=== PATIENT | female | born 1955 | race Caucasian/White ===

== ENCOUNTER → 2017-01-23 | Outpatient (CLI) | payer OTHER | END | disposition home or self-care (01) | LOC: SURG 12:52 | PROVIDERS: ATTEND Anesthesiology | DX: M47.22 Other spondylosis with radiculopathy, cervical region (principal); M41.86 Other forms of scoliosis, lumbar region; M25.512 Pain in left shoulder; M79.1 Myalgia; F11.20 Opioid dependence, uncomplicated; F17.200 Nicotine dependence, unspecified, uncomplicated; Z79.899 Other long term (current) drug therapy | CPT/HCPCS: 99204 ==

== ENCOUNTER → 2017-10-26 | Outpatient (CLI) | payer OTHER ==
[~2017-10-26] MED LIST: BUPIVACAINE MPF 0.25% 10 ML VIAL. ONE; LIDOCAINE 1% PF 30 ML VIAL. ONE
== END ==
LOC: SURG 09:20
PROVIDERS: ATTEND Anesthesiology Pain Medicine
DX: M47.812 Spondylosis without myelopathy or radiculopathy, cervical region (principal); F19.20 Other psychoactive substance dependence, uncomplicated; F17.200 Nicotine dependence, unspecified, uncomplicated; Z72.0 Tobacco use
CPT/HCPCS: 64490; 64491; 64492; J2001; J3490

== ENCOUNTER → 2017-11-29 | Outpatient (CLI) | payer OTHER | END | disposition home or self-care (01) | LOC: SURG 09:19 | PROVIDERS: ATTEND Anesthesiology Pain Medicine | DX: M47.812 Spondylosis without myelopathy or radiculopathy, cervical region (principal); F17.200 Nicotine dependence, unspecified, uncomplicated | CPT/HCPCS: 99214 ==

== ENCOUNTER → 2017-12-20 | Outpatient (CLI) | payer OTHER | END | disposition home or self-care (01) | LOC: SURG 09:03 | PROVIDERS: ATTEND Anesthesiology Pain Medicine | DX: M25.512 Pain in left shoulder (principal); M54.2 Cervicalgia; Z86.73 Personal history of transient ischemic attack (TIA), and cerebral infarction without residual deficits; Z87.891 Personal history of nicotine dependence | CPT/HCPCS: 99214 ==

== ENCOUNTER → 2018-01-31 | Day surgery (SDC) | payer OTHER ==
[~2018-01-31] MED LIST changes: -BUPIVACAINE MPF 0.25% 10 ML VIAL. ONE; +BUPIVACAINE MPF 0.25% 30 ML VIAL. ONE; +CYCL-331 PO; +DEXAMETHASONE SOD PHOS 4 MG/ML VIAL ONE; +HYDR-2758 PO; +MIDAZOLAM HCL PF 2 MG/2 ML VIAL. ONE; +MORP15TA3 PO
[2018-01-31 10:55] VITALS: BP 154/89
== END | disposition home or self-care (01) ==
LOC: SURG 08:41
PROVIDERS: ATTEND Anesthesiology Pain Medicine
DX: M47.814 Spondylosis without myelopathy or radiculopathy, thoracic region (principal); F17.210 Nicotine dependence, cigarettes, uncomplicated; Z90.710 Acquired absence of both cervix and uterus; Z98.51 Tubal ligation status; Z98.890 Other specified postprocedural states; M19.90 Unspecified osteoarthritis, unspecified site; Z79.899 Other long term (current) drug therapy; Z86.73 Personal history of transient ischemic attack (TIA), and cerebral infarction without residual deficits
CPT/HCPCS: 64633; 64634; 99152; 99153; J1100; J2001; J2250; J3010; J3490

== ENCOUNTER → 2018-03-21 | Outpatient (CLI) | payer OTHER ==
[2018-01-31 10:55] VITALS: BP 154/89
[~2018-03-21] MED LIST changes: -BUPIVACAINE MPF 0.25% 30 ML VIAL. ONE; -DEXAMETHASONE SOD PHOS 4 MG/ML VIAL ONE; +HYDR-2155 PO; -HYDR-2758 PO; -LIDOCAINE 1% PF 30 ML VIAL. ONE; -MIDAZOLAM HCL PF 2 MG/2 ML VIAL. ONE
== END | disposition home or self-care (01) ==
LOC: SURG 10:01
PROVIDERS: ATTEND Anesthesiology Pain Medicine
DX: M47.814 Spondylosis without myelopathy or radiculopathy, thoracic region (principal); M62.838 Other muscle spasm; G89.4 Chronic pain syndrome; F11.90 Opioid use, unspecified, uncomplicated; F17.200 Nicotine dependence, unspecified, uncomplicated; M19.90 Unspecified osteoarthritis, unspecified site; Z90.710 Acquired absence of both cervix and uterus; Z79.899 Other long term (current) drug therapy
CPT/HCPCS: 99214

== ENCOUNTER → 2018-08-20 | Outpatient (CLI) | payer OTHER ==
[2018-01-31 10:55] VITALS: BP 154/89
== END | disposition home or self-care (01) ==
LOC: SURG 09:26
PROVIDERS: ATTEND Anesthesiology
DX: M47.812 Spondylosis without myelopathy or radiculopathy, cervical region (principal); M79.10 Myalgia, unspecified site; F17.200 Nicotine dependence, unspecified, uncomplicated
CPT/HCPCS: 99214

== ENCOUNTER → 2018-09-13 | Outpatient (CLI) | payer OTHER ==
[2018-01-31 10:55] VITALS: BP 154/89
== END | disposition home or self-care (01) ==
LOC: SURG 12:11
PROVIDERS: ATTEND Anesthesiology Pain Medicine
DX: Z02.9 Encounter for administrative examinations, unspecified (principal); M47.814 Spondylosis without myelopathy or radiculopathy, thoracic region; M79.10 Myalgia, unspecified site; G89.4 Chronic pain syndrome; M19.90 Unspecified osteoarthritis, unspecified site; Z90.710 Acquired absence of both cervix and uterus; Z79.899 Other long term (current) drug therapy; Z79.891 Long term (current) use of opiate analgesic
CPT/HCPCS: 99214

== ENCOUNTER → 2020-07-13 | Outpatient (CLI) | payer BC ==
[2018-01-31 10:55] VITALS: BP 154/89
[~2020-07-13] MED LIST changes: +MORP-15 PO; -MORP15TA3 PO
--- NOTE | 2020-07-15 09:56 | RAD ---
PROCEDURE: MG 2D BILAT SCREENING HISTORY: The patient is 65 years old and is seen for Reason: SCREENING / Spl. Instructions: / Histor y: . COMPARISON: April 11, 2013 TECHNIQUE: CC and MLO views of both breasts were obtained. Images were processed by the [employer] computer-aided detection system. DENSITY: The breast parenchyma is heterogeneously dense. This may lower the sensitivity of mammograph y. FINDINGS: Focal asymmetry within the left breast retroareolar region 1.3 cm from the nipple. No barrett spicious macrocalcification. Bilateral breast implants with irregular appearance. IMPRESSION: Left retroareolar breast focal asymmetry. Recommend spot compression views and ML view. Ultrasound ma y also be indicated. BI-RADS category 0 Incomplete: Needs additional imaging evaluation Patient entered into a reminder system for annual screening mammogram. Electronically signed by: Sawyer Jolly DO (07/15/2020 9:54 AM) [id number]
== END ==
LOC: MAMMO 08:48
PROVIDERS: ATTEND Nurse Practitioner Family
DX: Z12.31 Encounter for screening mammogram for malignant neoplasm of breast (principal)
CPT/HCPCS: 77067

== ENCOUNTER → 2020-08-04 | Day surgery (SDC) | payer BC ==
[~2020-08-04] MED LIST changes: +BUPIVACAINE MPF 0.25% 30 ML VIAL. ONE; +LIDOCAINE 1% PF 30 ML VIAL. ONE
[2020-08-04 13:08] VITALS: BP 131/69
== END | disposition home or self-care (01) ==
LOC: SURG 13:01
PROVIDERS: ATTEND Anesthesiology
DX: M12.88 Other specific arthropathies, not elsewhere classified, other specified site (principal); M47.814 Spondylosis without myelopathy or radiculopathy, thoracic region; I10 Essential (primary) hypertension; F17.210 Nicotine dependence, cigarettes, uncomplicated; M47.816 Spondylosis without myelopathy or radiculopathy, lumbar region; Z79.891 Long term (current) use of opiate analgesic; Z98.51 Tubal ligation status; Z98.890 Other specified postprocedural states; Z79.899 Other long term (current) drug therapy; Z90.710 Acquired absence of both cervix and uterus; Z86.73 Personal history of transient ischemic attack (TIA), and cerebral infarction without residual deficits
CPT/HCPCS: 64490; 64491; J3490; 64492

== ENCOUNTER → 2020-08-09 | Outpatient (CLI) | payer BC ==
[2020-08-04 13:08] VITALS: BP 131/69
[~2020-08-09] MED LIST changes: -BUPIVACAINE MPF 0.25% 30 ML VIAL. ONE; -LIDOCAINE 1% PF 30 ML VIAL. ONE
--- NOTE | 2020-08-09 13:59 | RAD ---
EXAM: Left breast diagnostic mammogram; left breast sonogram. HISTORY: 65-year-old female presents for reduction of asymmetry within the left breast demonstrated o n a screening mammogram dated 06/16/2020. TECHNIQUE: Full-field digital and spot compression views of the left breast are obtained. Sonographic imaging of the left breast targeted to the site of asymmetry was also performed. COMPARISON: 07/13/2020 and 04/11/2013 BREAST PARENCHYMAL DENSITY: Level C - Heterogeneously dense. FINDINGS: There is no persistent finding of concern within the left breast with additional mammograph ic views, favoring summation artifact on the prior exam. There are benign calcifications within the l eft breast. There is a stable subpectoral left breast implant with contour deformity due to intracaps ular rupture. IMPRESSION: 1. No persistent finding of concern within the left breast with additional mammographic and sonograph ic images. 2. BI-RADS Category 2: Benign finding(s). RECOMMENDATION: Annual mammography is recommended. If your mammogram demonstrates that you have dense breast tissue, which could hide abnormalities, and if you have other risk factors for breast cancer that have been identified, you might benefit from s upplemental screening tests that may be suggested by your ordering physician. Dense breast tissue, i n and of itself, is a relatively common condition. This information is not provided to cause undue c oncern, but rather to raise your awareness and to promote discussion with your physician regarding th e presence of other risk factors, in addition to dense breast tissue. A report of your mammography re sults will be sent to you and your physician. You should contact your physician if you have any ques tions or concerns regarding this report. Mammography is a sensitive method for finding small breast cancers, but it does not detect them all a nd is not a substitute for careful clinical examination. A negative mammogram does not negate a clin ically suspicious finding and should not result in delay in biopsying a clinically suspicious abnorma lity. PQRS compliance statement - Patient information was entered into a reminder system with a target due date for the next mammogram. "Our facility is accredited by the [employer] Mammography [employer]." Electronically signed by: Natalie Grullon MD (08/09/2020 1:56 PM) [id number]
== END ==
LOC: MAMMO 12:22
PROVIDERS: ATTEND Nurse Practitioner Family
DX: R92.1 Mammographic calcification found on diagnostic imaging of breast (principal)
CPT/HCPCS: 76641; 77065

== ENCOUNTER 2021-07-24 08:01 | Emergency (ER) | payer BC ==
[~2021-07-24] VITALS: Ht 154.9 cm; Wt 51.6 kg
[~2021-07-24 08:01] MED LIST changes: -CYCL-331 PO; +CYCL10TA19 PO
[2021-07-24] MEDS ORDERED: MELO15TA23 PO (08:32)
[2021-07-24] MEDS ORDERED: OXYC-325 PO (08:32)
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
[2021-07-24 08:40] VITALS: BP 128/79
== END 2021-07-24 08:40 | disposition home or self-care (01) ==
LOC: ER 08:01
DX: G89.29 Other chronic pain (principal); M54.89 Other dorsalgia
CPT/HCPCS: 99283